=== PATIENT | male | born 1970 | race African-American/Black ===

== ENCOUNTER 2024-08-26 20:11 | Emergency (ER) | payer SELFPAY ==
[~2024-08-26] VITALS: Ht 193 cm; Wt 124.6 kg
[2024-08-26 20:13] VITALS: O2SAT 97
[2024-08-26] MEDS: TETANUS, DIPHTHERIA, PERTUSSIS VAC/PF 0.5ML (>10YR OLD) IM ONE (20:35)
[2024-08-26] MEDS: ACETAMINOPHEN WITH CODEINE 300/30MG TABLET PO ONE (20:58)
[2024-08-26] MEDS: KETOROLAC 30MG/ML VIAL IM ONE (20:58)
[2024-08-27] MEDS ORDERED: CEPH500T MT (00:16)
[2024-08-27 00:35] VITALS: BP 109/49; PULSE 67; RESP 18; TEMP 36.7; O2SAT 97
== END 2024-08-27 00:44 | disposition home or self-care (01) ==
LOC: ER 20:11
DX: S91.331A Puncture wound without foreign body, right foot, initial encounter (principal); W34.00XA Accidental discharge from unspecified firearms or gun, initial encounter; X58.XXXA Exposure to other specified factors, initial encounter; Y93.89 Activity, other specified; Y92.89 Other specified places as the place of occurrence of the external cause; Y99.8 Other external cause status
CPT/HCPCS: 73630; 90715; 90471; 96372; 99285; J1885; Z7610

== ENCOUNTER 2024-08-30 12:02 | Emergency (ER) | payer SELFPAY ==
[~2024-08-30] VITALS: Ht 191.8 cm; Wt 125.0 kg
[~2024-08-30 12:02] MED LIST: CEPH500T MT
[2024-08-30 12:09] VITALS: BP 119/83; PULSE 121; RESP 18; TEMP 37.1; O2SAT 98
[2024-08-30] MEDS ORDERED: BO1 TP (12:40)
[2024-08-30] MEDS: BACITRACIN ZINC OINT UDPKT TOP ONE (13:05)
== END 2024-08-30 13:07 | disposition home or self-care (01) ==
LOC: ER 12:02
DX: Z48.00 Encounter for change or removal of nonsurgical wound dressing (principal); F41.9 Anxiety disorder, unspecified
CPT/HCPCS: 99282